=== PATIENT | male | born 1965 | race Caucasian/White ===

== ENCOUNTER 2016-07-28 08:15 | Day surgery (SDC) | payer BC ==
[~2016-07-28] VITALS: Ht 180.3 cm; Wt 89.6 kg
[2016-07-28] VITALS (12 sets, daily range): BP systolic 101–129; BP diastolic 63–88; PULSE 50–73; TEMP 96.7–99
[2016-07-28] MEDS ORDERED: ZYRTEC 10MG10 MG PO (08:36)
[2016-07-28] MEDS ORDERED: PRIL40 PO (08:37)
[2016-07-28] MEDS ORDERED: CLARITIN 1010 MG/TAB PO (09:01)
[2016-07-29 05:55] VITALS: BP 109/58; PULSE 77; TEMP 98.8
[2016-07-29 09:42] VITALS: BP 113/63; PULSE 61; TEMP 98.3
[2016-07-29 13:01] VITALS: BP 129/67; PULSE 72; TEMP 97.7
== END 2016-07-29 17:53 | disposition home or self-care (01) ==
LOC: SDCO 08:15 → SURG 12:10 → SDCO 07-29 17:53
DX: K21.0 Gastro-esophageal reflux disease with esophagitis (principal); K44.9 Diaphragmatic hernia without obstruction or gangrene; K22.70 Barrett's esophagus without dysplasia; Z83.3 Family history of diabetes mellitus; Z82.49 Family history of ischemic heart disease and other diseases of the circulatory system; Z80.42 Family history of malignant neoplasm of prostate; Z80.52 Family history of malignant neoplasm of bladder
CPT/HCPCS: OP; A9284; J0690; J1100; J1170; J1885; J2270; J2405; J2704; J2710; J2765; J3010; J7120